=== PATIENT | female | born 1995 ===

== ENCOUNTER 2018-05-19 02:08 | Day surgery (SDC) | payer OTHER ==
[~2018-05-19] VITALS: Ht 154.9 cm; Wt 55.8 kg
[~2018-05-19 02:08] MED LIST: BCP PO; CITA-145 PO; DEXL30CA5 PO
[2018-05-19 09:04] VITALS: BP 121/80
[2018-05-19] MEDS ORDERED: NORMOSOL R SOLN(*) 1000 ML BAG 1,000 ML IV PRN (09:30)
[2018-05-19] MEDS ORDERED: LIDOCAINE/SOD BICARB 8.4% SYR ID ONE (09:30)
[2018-05-19 10:00] VITALS: BP 92/56
[2018-05-19 10:18] VITALS: BP 117/76
[2018-05-19 10:19] VITALS: BP 115/87
== END 2018-05-19 10:30 | disposition home or self-care (01) ==
LOC: OR 02:08
PROVIDERS: ATTEND Internal Medicine Gastroenterology
DX: K20.9 Esophagitis, unspecified (principal); K44.9 Diaphragmatic hernia without obstruction or gangrene
CPT/HCPCS: 81025; 88305; 88313; 88344; C1769

== ENCOUNTER → 2018-09-29 | Outpatient (REF) ==
[~2018-09-29] MED LIST changes: +HYDR-4228 PO; +NORE-21 PO; +RANI-366 PO; +TRAZ50TA34 PO
[2018-09-29 08:17] LABS: LDL CHOLESTEROL 42 mg/dl
== END ==
DX: Z02.9 Encounter for administrative examinations, unspecified (principal)